=== PATIENT | female | born 1990 | race Asian ===

== ENCOUNTER 2021-07-28 00:04 | Emergency (ER) | payer BC, OTHER ==
[2021-07-28] MEDS ORDERED: LACTATED RINGERS SOLUTION 1000 ML INFUS.BAG IV ONE (00:07)
[2021-07-28 00:24] VITALS: BP 89/56; PULSE 90; TEMP 98.9; BMI 25.2
[2021-07-28 01:26] LABS: EOS % 1.7 % (0-4.5); HEMATOCRIT 38.8 % (32.4-45.2); HEMOGLOBIN 13.6 GM/dL (10.7-15.3); LYMPH % 44.2 % (8-40); MCH 28.9 pg (25.7-33.7); MEAN CELL VOLUME 82.6 fl (80-96); MEAN PLT VOLUME 7.5 fl (7.5-11.1); MONO % 7.2 % (3.8-10.2); NEUT % 45.9 % (42.8-82.8); PLATELET COUNT 269 10^3/uL (134-434); WHITE BLOOD COUNT 5.9 K/mm3 (4.0-10.0)
[2021-07-28 01:47] LABS: CHLORIDE 106 mmol/L (98-107); SODIUM 138 mmol/L (136-145)
[2021-07-28 01:48] LABS: CALCIUM 8.8 mg/dL (8.5-10.1)
[2021-07-28 01:49] LABS: ANION GAP 9 MMOL/L (8-16); BLOOD UREA NITROGEN 8.5 mg/dL (7-18); CO2 23 mmol/L (21-32); GLUCOSE,RANDOM 118 mg/dL (74-106)
[2021-07-28 01:52] LABS: CREATININE 0.7 mg/dL (0.55-1.3); SGOT/AST 19 U/L (15-37); SGPT/ALT 25 U/L (13-61)
[2021-07-28 01:54] LABS: BILIRUBIN,TOTAL 0.3 mg/dL (0.2-1); TOT PROT 7.7 g/dl (6.4-8.2)
[2021-07-28 01:55] LABS: ALK PHOS 69 U/L (45-117)
[2021-07-28] MEDS ORDERED: POTASSIUM CHLORIDE TABS 20 MEQ TABLET.ER (FP) PO ONE ×2 (02:06→02:10)
[2021-07-28] MEDS ORDERED: MAGNESIUM SULF 50% (8.12 MEQ/2 ML-1 GM VIAL) IVPB ONE (02:06)
[2021-07-28] MEDS ORDERED: MAGNESIUM SULF 50% (8.12 MEQ/2 ML-1 GM VIAL) ONE (02:10)
== END 2021-07-28 03:00 | disposition home or self-care (01) ==
LOC: FER 00:04
PROC: 3E033GC Introduction of Other Therapeutic Substance into Peripheral Vein, Percutaneous Approach (ICD-10-PCS; principal; 2021-07-28)
DX: R55 Syncope and collapse (principal)
CPT/HCPCS: 36415; 80053; 80307; 84702; 85025; 93005; 99284-25